=== PATIENT | female | born 1975 | race Two or more races ===

== ENCOUNTER 2023-05-14 09:04 | Emergency (ER) | payer BC, SELFPAY ==
[2023-05-14 09:11] VITALS: BP 147/98; PULSE 89; RESP 16; TEMP 37.1; O2SAT 99
[2023-05-14 09:22] VITALS: O2SAT 99
--- NOTE | 2023-05-14 09:28 | XR_ITS ---
[address] [address] Patient Name: BRUCE HAYDEN MRN: [id number] date: 1975 Sex: F Assigned Patient Location: ED.MAIN Current Patient Location: ER Accession/Order Number: [id number] Exam Date: 05/14/2023 09:28 Report Date: 05/14/2023 09:44 At the request of: RYANNE LOPEZ Procedure: XR foot LT min 3V PROCEDURE: XR foot LT min 3V COMPARISON: 06/20/2015 HISTORY: left heel pain FINDINGS: BONES:Moderate plantar enthesopathic spurring of the calcaneus. No acute fracture or dislocation. SOFT TISSUES:Negative. No visible soft tissue swelling. EFFUSION:None visible. OTHER: Negative. IMPRESSION: Moderate plantar enthesopathic spurring of the calcaneus Electronically authenticated by: JAQUI JHA Date: 05/14/2023 09:44
--- NOTE | 2023-05-14 10:13 | ED_ITS ---
HPI - Extremity Injury (Lower) General Chief Complaint: Extremity Injury, Lower Stated Complaint: HEEL PAIN Time Seen by Provider: 05/14/23 09:17 Source: patient Mode of arrival: walk-in Limitations: no limitations History of Present Illness HPI Narrative: left heel pain that began about a month ago. It didn't resolve on its own so she went to the urgent care 2 weeks ago but they did nothing . Patient previously had a right heel spur - about a year ago - which felt similar. She said that she saw a sports med physician in [place] - Dr Pizarro - and he gave her a steroid shot and the pain went away . She said that the left heel feels the same way. 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 afebrile General: Well-appearing and in no apparent distress. Skin: Warm, dry, no pallor noted. No rash to the foot. Head: Normocephalic, atraumatic. Cardiovascular: normal peripheral perfusion. Respiratory: No accessory muscle use or respiratory distress. Musculoskeletal: tenderness throughout the elft heel. No achilles laxity. No ankle or mid foot tenderness. No TTP along the 5th metatarsal. left ankle and toes with normal ROM, no calf or popliteal tenderness, no lower extremity edema/swelling Neurological: A&O x4. No cranial nerve dysfunction observed. No truncal ataxia. Moves all extremities. Sensation intact. Psychiatric: Cooperative and interactive. Normal mood and affect. Constitutional Vital Signs - 24 hr 05/14/23 09:11 05/14/23 09:22 Temperature 98.7 F Pulse Rate [Monitor] 89 Respiratory Rate 16 Blood Pressure [Right Arm] 147/98 H Pulse Oximetry 99 99 Oxygen Delivery Method Room Air Room Air Course Vital Signs Vital signs: Vital Signs Temperature 98.7 F 05/14/23 09:11 Pulse Rate 89 05/14/23 09:11 Respiratory Rate 16 05/14/23 09:11 Blood Pressure 147/98 H 05/14/23 09:11 Pulse Oximetry 99 05/14/23 09:11 Oxygen Delivery Method Room Air 05/14/23 09:11 Temperature 98.7 F 05/14/23 09:11 Pulse Rate 89 05/14/23 09:11 Respiratory Rate 16 05/14/23 09:11 Blood Pressure 147/98 H 05/14/23 09:11 Pulse Oximetry 99 05/14/23 09:22 Oxygen Delivery Method Room Air 05/14/23 09:22 MDM - Extremity Injury (Lower) MDM Narrative Medical decision making narrative: patient believes she has a heel spur on the left foot - sent for xrays which confirmed the heel spur. She was given IM SOlumedrol as this was apparently effective when she had a right heel spur. She was discharged home with instructions to call Dr Juarez Torre for follow up if the pain persists. Imaging Data xr left foot: Radiologist's impression: Patient Name: BRUCE HAYDEN MRN: [id number] date: 1975 Sex: F Assigned Patient Location: ED.MAIN Current Patient Location: ER Accession/Order Number: [id number] Exam Date: 05/14/2023 09:28 Report Date: 05/14/2023 09:44 At the request of: RYANNE LOPEZ Procedure: XR foot LT min 3V PROCEDURE: XR foot LT min 3V COMPARISON: 06/20/2015 HISTORY: left heel pain FINDINGS: BONES:Moderate plantar enthesopathic spurring of the calcaneus. No acute fracture or dislocation. SOFT TISSUES:Negative. No visible soft tissue swelling. EFFUSION:None visible. OTHER: Negative. IMPRESSION: Moderate plantar enthesopathic spurring of the calcaneus Electronically authenticated by: JAQUI JHA Date: 05/14/2023 09:44 Discharge Plan Discharge Chief Complaint: Extremity Injury, Lower Clinical Impression: Bone spur of left foot Patient Disposition: Home, Self-Care Time of Disposition Decision: 10:14 Prescriptions / Home Meds: No Action No Known Home Medications Instructions: Heel Spur (ED) Additional Instructions: Patient instructed to follow up with Dr Juarez Torre (Sports Med) Stand Alone Forms: Portal Instructions Referrals: Physician,Non-Staff, MD [Primary Care Provider] - 1 week
[2023-05-14] MEDS: METHYLPREDNISOLONE SOD SUCC PF 125 MG/2 ML VIAL IM (10:32)
== END 2023-05-14 11:03 | disposition home or self-care (01) ==
PROVIDERS: Emergency Provider Emergency Medicine
DX: M77.32 Calcaneal spur, left foot (principal)
CPT/HCPCS: 73630; 96372; 99284; J2930